=== PATIENT | male | born 1960 | race Caucasian/White ===

== ENCOUNTER 2017-01-07 08:30 | Inpatient (IN) | payer OTHER ==
[~2017-01-07] VITALS: Ht 177.8 cm; Wt 95.5 kg
[2017-01-07] MEDS ORDERED: OMEP20CA3 PO (08:48)
[2017-01-07] MEDS ORDERED: ATOR1TAB18 PO (08:48)
[2017-01-07] MEDS ORDERED: ETOD30CA PO (08:48)
[2017-01-07] MEDS: MULTIVITAMINS/MINERALS THERAP 1 TAB PO SCH ×2 (09:00→21:19)
[2017-01-07] MEDS ORDERED: MORPHINE 4 MG/ML 1ML SYRINGE IV ONE (09:00)
[2017-01-07] MEDS ORDERED: ONDANSETRON 4MG/2ML VIAL (J2405) IV ONE (09:00)
--- NOTE | 2017-01-07 09:22 | REP ---
PORTABLE CHEST, SINGLE VIEW: COMPARISON: 01/19/2015. There is no evidence of acute infiltrate. No pleural effusion is seen. The heart is normal in size. The mediastinal silhouette is unremarkable. The visualized osseous structures are intact. IMPRESSION: No acute pulmonary disease. Signed by Saji Navarrete MD 01/07/2017 12:42 P
[2017-01-07 09:39] LABS: BASO # 0.1 K/mm3 (0.0-0.2); BASO % 0.8 % (0.0-1.0); EOS # 0.1 K/mm3 (0.0-0.50); EOS % 1.2 % (0.0-3.0); LARGE UNSTAINED CELL # 0.2 K/mm3 (0.0-0.4); LARGE UNSTAINED CELL % 1.7 % (0.0-4.0); LYMPH # 1.7 K/mm3 (1.5-4.5); LYMPH % 17.9 % (24.0-44.0); MEAN CORPUSCULAR HEMOGLOBIN 31.2 pg (27.0-33.0); MEAN CORPUSCULAR HGB CONC 33.7 g/dl (32.0-36.5); MEAN CORPUSCULAR VOLUME 92.8 fl (80.0-96.0); MONO # 0.5 K/mm3 (0.0-0.8); MONO % 5.4 % (0.0-5.0); NEUTROPHILS # 6.7 K/mm3 (1.8-7.7); PLATELET COUNT, AUTOMATED 274 k/mm3 (150-450); RED CELL DISTRIBUTION WIDTH 12.8 % (11.5-14.5); WHITE BLOOD COUNT 9.2 K/mm3 (4.0-10.0)
[2017-01-07 09:52] LABS: ALBUMIN/GLOBULIN RATIO 1.03 (1.00-1.93); ALKALINE PHOSPHATASE 92 U/L (45-117); ALT/SGPT 59 U/L (12-78); ANION GAP 9 MEQ/L (8-16); AST/SGOT 16 U/L (15-37); BILIRUBIN,DIRECT 0.1 MG/DL (0.0-0.2); BILIRUBIN,TOTAL 0.7 MG/DL (0.2-1.0); BLOOD UREA NITROGEN 13 MG/DL (7-18); CARBON DIOXIDE LEVEL 26 MEQ/L (21-32); CHLORIDE LEVEL 102 MEQ/L (98-107); CREATININE FOR GFR 0.83 MG/DL (0.70-1.30); GLOMERULAR FILTRATION RATE > 60.0 (>56); GLUCOSE, FASTING 121 MG/DL (70-105); POTASSIUM SERUM 4.6 MEQ/L (3.5-5.1); SODIUM LEVEL 137 MEQ/L (136-145); TOTAL PROTEIN 7.9 GM/DL (6.4-8.2)
--- NOTE | 2017-01-07 09:55 | REP ---
CT Head without contrast HISTORY: Altered mental status COMPARISON: None There is no intraparenchymal hemorrhage, acute infarct, mass or midline shift. The ventricular system is normal in appearance. There is no extra cerebral collection. There is no fracture. The visualized sinuses are clear. IMPRESSION: There is no intracranial lesion. Signed by Miles Negrete MD 01/07/2017 09:46 A
[2017-01-07] MEDS: NS 1,000 ML IV SCH ×2 (10:31→19:39)
--- NOTE | 2017-01-07 13:56 | REP ---
MR angiography the brain without contrast: History: CVA versus TIA. Technique: 3-D [id number] MR angiography of the brain is acquired in the usual fashion and maximal intensity projection images were generated in rotational format about the vertical and horizontal axes. In addition, source axial T1-weighted images are viewed in cine mode. MR angiographic findings: The distal vertebral arteries are patent , right larger than left . Basilar artery is a little tortuous but widely patent. The posterior cerebral and superior cerebellar vessels are normal and symmetric. The distal internal carotid arteries are unremarkable. Anterior and middle cerebral arteries appear intact. There is no visible flores aneurysm or arteriovenous malformation. Impression: Unremarkable MR angiography the brain. Signed by Stone Ruff MD 01/07/2017 01:47 P
--- NOTE | 2017-01-07 14:07 | REP ---
MR BRAIN WITHOUT CONTRAST: HISTORY: TIAs. Scattered punctate areas of increased signal intensity on T2-weighted images are present in the periventricular and subcortical white matter. This represents small vessel ischemic disease. There is no intraparenchymal hemorrhage, infarct, mass, or midline shift. The sella turcica is partially empty. The ventricular system is normal in appearance. There is no extracerebral collection. Mucosal thickening is present in the mastoid air cells and right ethmoid sinus. IMPRESSION: Minimal small vessel ischemic disease. Signed by Miles Negrete MD 01/07/2017 02:18 P
[2017-01-07] MEDS ORDERED: LISI40TAB PO (16:02)
[2017-01-07] MEDS ORDERED: ONDANSETRON 4MG/2ML VIAL (J2405) IV PRN (16:30)
[2017-01-07] MEDS ORDERED: ACETAMINOPHEN TAB 650MG DOSE (2X325MG) PO PRN (16:30)
--- NOTE | 2017-01-07 17:13 | HPEPDOC ---
General Date of Admission Jan 07, 2017 at 16:29 Chief Complaint The patient is a 56-year-old male admitted with a reason for visit of TIA. Source: Patient Exam Limitations: No limitations History of Present Illness 56-year-old male with past medical history of hypertension, dyslipidemia, GERD, alcohol abuse, and tobacco abuse presented to the ER after he had an episode of headache associated with confusion and diaphoresis. The patient states that he was at work this morning around 10:30 AM, when he all of a sudden started to have left-sided headache with blurring of vision, and associated with confusion with diaphoresis. He states that his coworker subsequently called 911 for further evaluation and management. During this time, the patient denies any tongue biting, jerking activity, urinary/fecal incontinence, chest pain, palpitations, shortness of breath, abdominal pain, or any nausea/vomiting/ diarrhea. He denies any complaints of fevers, cough, or congestion leading up to this event. The patient also denies any focal neurological complaints of facial numbness/tingling, slurring of speech, weakness in any of his extremities , or any other focal neurological deficits. At this time, the patient states that he is feeling much better, and denies any acute complaints. In the ER, a CT scan of the head and MRI and MRA of the brain revealed no acute findings. The ER physician did get in contact with neurology who has requested the patient be admitted for further monitoring and workup. The patient will be admitted under the service of Dr. Lopez for further evaluation and management. Home Medications Scheduled Aspirin (Aspirin EC) 81 Mg Tabec 81 MG PO DAILY Atorvastatin Calcium (Atorvastatin Calcium) 80 Mg Tab 40 MG PO DAILY (Reported ) Lisinopril (Lisinopril) 40 Mg Tab 40 MG PO DAILY (Reported) Omeprazole (Omeprazole) 20 Mg Cap 20 MG PO DAILY (Reported) Allergies Coded Allergies: No Known Drug Allergy (Verified Allergy, Unknown, 01/07/17) Past Medical History Medical History As noted in HPI. Surgical History None Family History Mother has diabetes mellitus Social History * Smoker: other (has smoked 1-1/2 packs per day of tobacco for the last 30+ years) Alcohol: other (drinks 4-5 beers daily for the last 3 years) Drugs: marijuana (smokes marijuana joint daily for the past 5 years.) [place] , is able to complete ADLs independently. 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 Review of Symptoms Other systems 10 point review of systems negative unless otherwise specified in HPI. Physical Examination General Exam: Positive: Alert, Cooperative, No Acute Distress ENT Exam: Positive: Atraumatic, Mucous membr. moist/pink Neck Exam: Negative: JVD Chest Exam: Positive: Clear to auscultation, Normal air movement Heart Exam: Positive: Normal S1, Normal S2, Rate Normal, Regular Rhythm Telemetry: Positive: Sinus Abdomen Exam: Positive: Soft, Negative: Tenderness Extremity Exam: Positive: Normal pulses, Negative: Swelling, Tenderness Neuro Exam: Positive: Cranial Nerves 3-12 NL, Other (NIHSS 0), Sensation Intact , Strength at 5/5 X4 ext Vital Signs As noted in EMR Laboratory Data Labs 24H Laboratory Tests 2 01/07/17 09:07: Aspartate Amino Transf (AST/SGOT) 16, Alanine Aminotransferase (ALT/SGPT) 59, Alkaline Phosphatase 92, Total Bilirubin 0.7, Direct Bilirubin 0.1, Albumin 4.0 , Albumin/Globulin Ratio 1.03, Anion Gap 9, White Blood Count 9.2, Red Blood Count 4.94, Hemoglobin 15.4, Hematocrit 45.9, Mean Corpuscular Volume 92.8, Mean Corpuscular Hemoglobin 31.2, Mean Corpuscular Hemoglobin Concent 33.7, Red Cell Distribution Width 12.8, Platelet Count 274, Neutrophils (%) (Auto) 73.0H, Lymphocytes (%) (Auto) 17.9L, Monocytes (%) (Auto) 5.4H, Eosinophils (%) (Auto) 1.2, Basophils (%) (Auto) 0.8, Neutrophils # (Auto) 6.7, Lymphocytes # (Auto) 1.7, Monocytes # (Auto) 0.5, Eosinophils # (Auto) 0.1, Basophils # (Auto) 0.1, Calcium Level 9.0, Creatine Kinase MB 1.6, Creatine Kinase MB Relative Index 1.53, Glomerular Filtration Rate > 60.0, Lactic Acid Level 2.4*H, Large Unclassified Cells # 0.2, Large Unclassified Cells % 1.7, Thyroid Stimulating Hormone (TSH) 2.670, Total Creatine Kinase 104, Total Protein 7.9, Troponin I < 0.02 01/07/17 09:26: Bedside Glucose (Misc Panel) 110H 01/07/17 13:44: Lactic Acid Followup at 4 Hours 1.8 CBC/BMP Laboratory Tests 01/07/17 09:07 Red Blood Count 4.94, Mean Corpuscular Volume 92.8, Mean Corpuscular Hemoglobin 31.2, Mean Corpuscular Hemoglobin Concent 33.7, Red Cell Distribution Width 12.8 , Neutrophils (%) (Auto) 73.0 H, Lymphocytes (%) (Auto) 17.9 L, Monocytes (%) ( Auto) 5.4 H, Eosinophils (%) (Auto) 1.2, Basophils (%) (Auto) 0.8, Neutrophils # (Auto) 6.7, Lymphocytes # (Auto) 1.7, Monocytes # (Auto) 0.5, Eosinophils # ( Auto) 0.1, Basophils # (Auto) 0.1 Plan / VTE VTE Prophylaxis Ordered?: Yes Plan Plan Episode of headache, confusion, with blurred vision possibly secondary to TIA CT scan of the head, MRI and MRA of the brain with no acute findings Patient's symptoms have resolved, current NIHSS Score: 0 Neurology contacted in the ER, have recommended admission for further monitoring Neuro checks every 4 EKG noted to be in normal sinus rhythm Continue Lipitor 40 mg, aspirin 81 mg added 2-D echocardiogram, carotid ultrasound ordered Lipid panel, hemoglobin A1c ordered Neurology consulted for inpatient follow-up We will continue to monitor the patient's status Lactic acidosis likely secondary to above event, resolved Status post IV fluid hydration Hypertension, stable Continue lisinopril Dyslipidemia Continue Lipitor GERD Continue PPI Alcohol abuse Patient states that he drinks 4-5 beers daily Advised on drinking in moderation Serax every 6 hours Withdrawal precautions Tobacco abuse Counseled the patient on the need for cessation Marijuana use Patient states that he smokes 1 joint daily for the past 5 years Counseled on cessation DVT prophylaxis-Lovenox The patient will be admitted under the service of Dr. Lopez. ROSI CEDILLO MD Jan 07, 2017 17:13
--- NOTE | 2017-01-07 18:20 | REP ---
Clinical: Transient ischemic attack . Technique: Navarrete scale and color Doppler evaluation using linear high frequency transducer Findings: Two-dimensional navarrete scale and color images demonstrate minimal mixed plaque at the carotid bulbs with normal arterial lumen and laminar flow. No appreciable narrowing noted. Color Doppler interrogation demonstrates normal arterial wave patterns and velocities with no significant spectral broadening. Normal flow direction is appreciated in the bilateral vertebral arteries. RIGHT (cm/s) LEFT (cm/s) ICA peak systolic velocity 71.8 65.0 ICA diastolic velocity 27.9 24.9 ECA peak systolic velocity 138 103.5 CCA peak systolic velocity 137.2 126.3 ICA/CCA ratio 0.5 0.5 Impression: No hemodynamically significant areas of narrowing or stenosis appreciated. Based on set standards narrowing falls within the less than 50% range. Signed by Mikal Bingham MD 01/07/2017 05:29 P
[2017-01-07] MEDS: ENOXAPARIN 40 MG/0.4 ML SYRINGE (J1650) SC SCH (19:41)
[2017-01-07] MEDS: OXAZEPAM 15 MG CAP PO SCH (19:41)
[2017-01-07 21:05] VITALS: BP 137/77
[2017-01-07 21:11] VITALS: BP 137/77
[2017-01-07] MEDS: FOLIC ACID 1 MG TAB PO SCH (21:19)
[2017-01-07] MEDS: THIAMINE 100 MG TAB PO SCH (21:19)
[2017-01-07] MEDS: ASPIRIN 81 MG ENTERIC TAB PO SCH (21:19)
[2017-01-07 23:58] VITALS: BP 108/58
[2017-01-08] MEDS: OXAZEPAM 15 MG CAP PO SCH ×4 (00:22→18:11)
[2017-01-08] MEDS: NS 1,000 ML IV SCH ×2 (04:52→14:47)
[2017-01-08 04:56] VITALS: BP 132/87
[2017-01-08 05:24] LABS: MEAN CORPUSCULAR HEMOGLOBIN 31.7 pg (27.0-33.0); MEAN CORPUSCULAR HGB CONC 34.3 g/dl (32.0-36.5); MEAN CORPUSCULAR VOLUME 92.5 fl (80.0-96.0); RED CELL DISTRIBUTION WIDTH 12.7 % (11.5-14.5); WHITE BLOOD COUNT 8.9 K/mm3 (4.0-10.0)
[2017-01-08 05:27] LABS: ANION GAP 6 MEQ/L (8-16); BLOOD UREA NITROGEN 11 MG/DL (7-18); CARBON DIOXIDE LEVEL 28 MEQ/L (21-32); CHLORIDE LEVEL 108 MEQ/L (98-107); CHOLESTEROL LEVEL 160 MG/DL (<200); CREATININE FOR GFR 0.84 MG/DL (0.70-1.30); GLOMERULAR FILTRATION RATE > 60.0 (>56); GLUCOSE, FASTING 123 MG/DL (70-105); POTASSIUM SERUM 4.1 MEQ/L (3.5-5.1); SODIUM LEVEL 142 MEQ/L (136-145); TRIGLYCERIDES LEVEL 322 MG/DL (<150)
[2017-01-08 07:45] VITALS: BP 137/83
[2017-01-08] MEDS ORDERED: LISINOPRIL 40 MG TAB PO SCH (09:00)
[2017-01-08] MEDS ORDERED: OMEPRAZOLE 20 MG CAP PO SCH (09:00)
[2017-01-08] MEDS ORDERED: ATORVASTATIN 20 MG TAB PO SCH (09:00)
[2017-01-08] MEDS: ASPIRIN 81 MG ENTERIC TAB PO SCH (09:28)
[2017-01-08] MEDS: FOLIC ACID 1 MG TAB PO SCH (09:28)
[2017-01-08] MEDS: MULTIVITAMINS/MINERALS THERAP 1 TAB PO SCH (09:29)
[2017-01-08] MEDS: THIAMINE 100 MG TAB PO SCH (09:29)
[2017-01-08 12:00] VITALS: BP 109/70
[2017-01-08 16:00] VITALS: BP 113/53
[2017-01-08] MEDS ORDERED: ASPI81TAEC PO (17:03)
--- NOTE | 2017-01-08 18:06 | DSES ---
DATE OF ADMISSION: 01/07/2017 DATE OF DISCHARGE: 01/08/2017 DISCHARGE DIAGNOSIS: Possible transient ischemic attack (TIA). SECONDARY DIAGNOSES: 1. Near syncope. 2. Atypical migraine. 3. Tobacco use. 4. Alcohol abuse. 5. Dyslipidemia. 6. Hypertension. 7. Gastroesophageal reflux disease. 8. Marijuana use. HOSPITAL COURSE: The patient is a 56-year-old man who was at work when he became confused, felt unwell, felt lightheaded, he had left-sided headache associated with his symptoms which did not resolve for approximately half an hour. His coworkers called [id number] and he was brought to the emergency room where there was concern for a TIA. The patient had a fairly extensive workup including a CT scan of the head, chest xray, MRI/MRA of the brain, as well as duplex ultrasounds of his carotids which did not reveal any acute CVA or etiology for a possible TIA. The patient's symptoms spontaneously resolved and he returned to his complete baseline. The patient had a TSH within normal limits and a hemoglobin A1c within normal limits. He was admitted to telemetry and monitored. He did have an echocardiogram and EEG completed which he can followup outpatient with his primary care provider and in the neurology clinic. He was seen in consultation by Dr. Sheth of neurology as there was concern for a possible TIA. Subjectively, the patient reports he feels completely back to normal and would like to go home. He has no complaints at this time. He denies paresthesias, weakness, chest pain, shortness of breath, fevers, chills, nausea, vomiting, or diarrhea. OBJECTIVE: VITAL SIGNS: Temperature 98, pulse 65, respiratory rate 18, blood pressure 137/83, oxygen saturation 96% on room air. GENERAL: He is a very pleasant, obese, middle aged, man laying in bed at a 60 degree angle watching television. He is accompanied by his . The patient does not appear to be in any acute distress. HEENT: Cranial nerves II-XII are grossly intact. He has moist mucous membranes. No elevation in his central venous pressure (CVP). CARDIOVASCULAR EXAM: S1, S2, regular. RESPIRATORY EXAM: Clear. ABDOMINAL EXAM: Obese. Bowel sounds are present. The abdomen is soft. EXTREMITIES: No clubbing, cyanosis, or edema. NEUROLOGICAL EXAM: Nonfocal. LABORATORY STUDIES: WBC 8.9, hemoglobin 14.6, platelet count 262. Chemistry panel: Sodium 142, potassium 4.1, chloride 108, bicarbonate 28, BUN 11, creatinine 0.8. Triglyceride level was elevated at 322, LDL 66.6, HDL was low at 29. TSH within normal limits as was hemoglobin A1c. Ethyl alcohol level was undetectable. IMAGING: As outlined above. ASSESSMENT AND PLAN: This is a 56-year-old man with: 1. Possible transient ischemic attack (TIA). The patient is being discharged home on his home statin as well as he has been started on a baby aspirin. The goal is to optimize his blood pressure. He has been advised to avoid all tobacco products and keep his alcohol use moderate. He has been seen by neurology who will continue to follow him up on the outpatient setting. He is to followup with his primary care provider (PCP) in 7 days and followup with the results of his echocardiogram and EEG. 2. Hypertension. Continue lisinopril. 3. Dyslipidemia. Continue Lipitor. 4. Gastroesophageal reflux disease. Continue with proton pump inhibitor (PPI). 5. Alcohol abuse. Moderation has been advised with no more than two drinks per day. Have recommended that he take folate, thiamine, and multivitamin. 6. Tobacco abuse. Cessation counseling offered and advised. 7. Marijuana use. Cessation counseling advised. 8. Deep venous thrombosis (DVT) prophylaxis. The patient has been on Lovenox. DISPOSITION: The patient is being discharged home to the care of his family. He is to followup with his primary care provider within 7 days and with neurology within 2 weeks. His activity is as prior to admission. His diet is as prior to admission. He is to avoid all tobacco products and limit alcohol use. MEDICATIONS: At the time of discharge: - aspirin 81 mg daily - atorvastatin 40 mg daily - lisinopril 40 mg daily - omeprazole 20 mg daily Greater than 30 minutes spent organizing disposition.
[2017-01-08] MEDS: ENOXAPARIN 40 MG/0.4 ML SYRINGE (J1650) SC SCH (18:13)
--- NOTE | 2017-01-08 20:39 | ECGEPIP ---
Stationary ECG Study [facility] - ED Test Date: 2017-01-07 Pat Name: SERGEY RIVERA Department: Room: - Gender: M [employer]ug Captain: tavares : 1960 Requested By: Liam Dominique Order Number: [id number] Reading MD: Gely Martinez Measurements Intervals [place] Rate: 61 P: 19 AK: 160 QRS: -5 QRSD: 93 T: 0 QT: 423 QTc: 427 Interpretive Statements SINUS RHYTHM NSTTW ABNORMALITY NO PRIOR FOR COMPARISON Electronically Signed On 01-08-2017 20:38:36 EDT by Gely Martinez
--- NOTE | 2017-01-09 09:54 | ECHO ---
DATE OF STUDY: 01/08/2017 REFERRING PHYSICIAN: Dr. Phoenix INDICATION: TIA. The patient measures 178 cm and weighs 95 kg. DIMENSIONS: IVS 1.2 LV 4.7 LVPW 1.2 LA 4.0 Aorta 3.4 FINDINGS: This study is of acceptable technical quality. Left ventricle is normal size and contractility with estimated EF around 60-65%. Mild LVH is noted. Right ventricle is normal size and systolic function. Left atrium is normal size (calculated left atrial volume index is 19 ml per meter square). Aortic valve is mildly sclerotic. Mitral tricuspid and pulmonic valves appear normal. No pericardial effusion is noted. Inferior vena cava is dilated but collapses with respiration indicative of likely mildly elevated central venous pressure. Aortic root is normal. Aortic arch and abdominal aorta were not visualized. Doppler interrogation of aortic valve reveals no insufficiency and trivial stenosis with mean gradient 6 mmHg. There is trace mitral insufficiency and trace tricuspid insufficiency. Calculated pulmonary artery pressure is in 30s corresponding to mild pulmonary hypertension. Pulmonic valve is functionally competent. Mitral inflow pattern and tissue Doppler imaging of mitral annulus reveal grade 2 diastolic dysfunction (E prime velocities are 6.5 cm/sec in septal and 11.3 cm/sec in lateral mitral annulus). CONCLUSIONS: 1. Study is of acceptable technical quality. 2. Normal LV size with mild LVH and preserved LV systolic function. 3. No hemodynamically significant valvular disease. 4. Likely mildly elevated central venous pressure and mild pulmonary hypertension. COMMENT: SBE prophylaxis is not recommended. Overall study most consistent with mild hypertensive heart disease. MTDD
--- NOTE | 2017-01-09 16:36 | EEG ---
DATE OF PROCEDURE: 01/08/2017 REFERRING PHYSICIAN: Dr. Clyde Lopez DIAGNOSIS: Altered mental status. EEG NUMBER: 17 [id number] HISTORY: The patient is a 56-year-old man who was admitted at [facility] due to episode of headache, confusion and sweating. He also had a blurred vision. This EEG was done to rule out epileptic potential. He is currently taking lisinopril, oxazepam, aspirin, folic acid, thiamine, etc. TECHNICAL DESCRIPTION: This digital EEG was recorded by 21 scalp, ear and two EKG electrodes and was reviewed in bipolar and referential montages following reformatting in 10-20 international electrode placement system. INTERPRETATION: The patient was noted to be in awake and drowsy states during this EEG. Resting awake background consisted of 15 Hz beta activity measuring 10-20 microvolts in amplitude which was symmetric and reactive to eye opening. Attenuation of posterior dominant was seen during transition into drowsiness. Stage I and II sleep were reviewed and were symmetric bilaterally. Hyperventilation and photic stimulation remained unremarkable. EKG revealed normal sinus rhythm. No focal, lateralizing or epileptiform abnormalities were seen. No clinical or electrographic seizures were recorded. CONCLUSION: This EEG in awake, drowsy states, stage I and II sleep is within normal limits. Excessive beta activity is due to medication effect.
--- NOTE | 2017-01-12 11:50 | CR ---
DATE OF CONSULTATION: 01/07/2017 REFERRING PROVIDER: Dr. Clyde Lopez REASON FOR CONSULTATION: History of transient ischemic attack (TIA). HISTORY OF PRESENTING ILLNESS: The patient is a 56-year-old male with a past medical history significant for hypertension, dyslipidemia, gastroesophageal reflux disease, alcohol abuse, tobacco abuse, presenting with an acute episode of headache associated with confusion, difficulty getting speech out. The patient states that his symptoms resolved by the time he arrived to the hospital. The patient denied having any chest pain, shortness of breath. He does smoke every day and does drink alcohol 4-5 beers a day. The patient did have a CAT scan of the head, as well as MR angiogram of the brain and MRI of the brain, both of which were negative. There is no significant stenosis on his carotid studies. The patient was given 81 mg aspirin and told to start Serax, thiamine, folic acid, and multivitamin. He was counseled to quit tobacco, as he smokes 1-1/2 packs of tobacco a day. He was counseled to reduce his alcohol intake, as he drinks 4-5 beers a day. He uses marijuana daily. The patient was counseled to cut back on marijuana, as well. The patient at the present time denies any difficulty with speech, numbness, tingling, weakness, dysarthria, aphasia, vertigo, dizziness at this time. REVIEW OF SYSTEMS: 14-point review of systems negative except as per history of present illness (HPI). PAST MEDICAL HISTORY: 1. Hypertension. 2. Hyperlipidemia. 3. Gastroesophageal reflux disease. 4. Alcohol abuse. 5. Tobacco abuse. 6. Marijuana abuse. ALLERGIES: None. HOME MEDICATIONS: - lisinopril 40 mg by mouth every day - omeprazole 20 mg by mouth every day - atorvastatin 40 mg by mouth every day SOCIAL HISTORY: The patient smokes 1-1/2 packs of tobacco per day for the last 30 years. Drinks 4-5 beers daily for the last 3 years. Uses marijuana daily for the past 5 years. FAMILY HISTORY: Noncontributory. PHYSICAL EXAMINATION: Blood pressure 113/53, pulse rate 60, respiratory rate is 18, temperature 97.9 degrees Fahrenheit, oxygenation 93% on room air. The patient is alert, oriented to person, place, and time. Speech, language, comprehension, and repetition are intact. Pupils are 3 mm, round and reactive to light. Deep tendon reflexes are 2+ throughout. Romberg testing is negative. There is no pronator drift. Strength is 5/5, including bilateral biceps, deltoids, triceps, handgrip, iliopsoas, quadriceps, anterior tibialis. Sensory is intact to light touch in all four extremities. Coordination normal. [id number] and [id number] without any signs of ataxia or dysmetria. Gait is normal. ASSESSMENT: Possible transient ischemic attack with episode of confusion, headache, blurred vision, diaphoresis. PLAN: 1. Continue aspirin 81 mg by mouth every day, atorvastatin 40 mg by mouth every day. 2. Continue telemetry monitoring. The patient is cleared to be discharged home, as he may have had a TIA, and so far, stroke workup is negative. Recommend cessation of tobacco, marijuana, and cutting down significantly on alcohol. The patient can followup in the [facility] Neurology office upon discharge. Physical therapy (PT) and occupational therapy (OT) recommended. Echocardiogram can be set up as an outpatient if needed. Electroencephalogram (EEG) can also be set up as an outpatient if needed.
== END 2017-01-08 18:11 | disposition home or self-care (01) | DRG 47 ==
LOC: EDBD 08:30 → M ED 09:17 → M ED INP 16:29 → M PCU 21:02
PROVIDERS: ADMIT Internal Medicine; ATTEND Internal Medicine
DX: G45.9 Transient cerebral ischemic attack, unspecified (principal); E87.2 Acidosis; R55 Syncope and collapse; I10 Essential (primary) hypertension; E78.5 Hyperlipidemia, unspecified; K21.9 Gastro-esophageal reflux disease without esophagitis; G43.909 Migraine, unspecified, not intractable, without status migrainosus; E66.9 Obesity, unspecified; F12.90 Cannabis use, unspecified, uncomplicated; F17.210 Nicotine dependence, cigarettes, uncomplicated; F10.10 Alcohol abuse, uncomplicated; Z79.82 Long term (current) use of aspirin; Z79.899 Other long term (current) drug therapy

== ENCOUNTER → 2020-03-23 | Outpatient (REF) | payer OTHER ==
[~2020-03-23] MED LIST: ASPI81TAEC PO; ATOR80TA59 PO; ETOD30CA PO; LISI40TA PO; OMEP1CAP73 PO
== END ==
LOC: M SFHCLERA 09:47
PROVIDERS: ATTEND Physician Assistant
DX: L02.416 Cutaneous abscess of left lower limb (principal)

== ENCOUNTER → 2020-05-29 | Outpatient (CLI) | payer OTHER ==
--- NOTE | 2020-08-21 08:55 | SLEEPCENT ---
DATE: 05/29/2020 ORDERED BY: Renetta Virgen at the 's [facility]. Diagnostic nocturnal polysomnography was performed for evaluation of sleep physiology. There was 7 hours and 35 minutes of data reviewed. There was 383.5 minutes of sleep identified. Sleep latency was mildly prolonged at 23 minutes. REM latency was normal at 69 minutes. Sleep architecture showed fragmentation. There were four REM cycles noted. Overall sleep efficiency is 85.1%. The electrocardiogram shows a sinus rhythm with an average heart rate of 56 beats per minute. EEG showed normal waveforms for wake and sleep. There were 76 respiratory events identified of 10 seconds in duration or greater for an apnea-hypopnea index off 11.9. The events were primarily obstructive, not exclusive to sleep stage nor body posture. Arousals from respiratory events occurred 5.6 times per hour, and oxygen desaturations were seen briefly below 90%. Minimal limb activity and arousals from limb events were few. IMPRESSION: Obstructive sleep apnea syndrome (G47.33). Apnea-hypopnea index 11.9. RECOMMENDATION: The patient should be encouraged to return to the sleep disorder center for pressure therapy. In the interim, alcohol and sedative avoidance should be practiced and caution exercised during the operation of motor vehicles. MTDD
== END ==
LOC: M SLEEP 20:00
PROVIDERS: ATTEND Internal Medicine
DX: G47.33 Obstructive sleep apnea (adult) (pediatric) (principal)

== ENCOUNTER → 2022-01-10 | Outpatient (CLI) | payer OTHER ==
[~2022-01-10] MED LIST changes: +ALPR1TAB3 PO; +ASPI-569 PO; -ASPI81TAEC PO; +EZET10TA21 PO; -LISI40TA PO; +LISI40TA4 PO; +XANA0.5T PO
== END ==
LOC: M LABSMTC 09:00
PROVIDERS: ATTEND Anesthesiology
DX: Z01.818 Encounter for other preprocedural examination (principal); Z11.52 Encounter for screening for COVID-19

== ENCOUNTER 2022-01-15 10:57 | Day surgery (SDC) | payer OTHER ==
[~2022-01-15] VITALS: Ht 177.8 cm; Wt 92.0 kg
[~2022-01-15 10:57] MED LIST changes: +NS 1,000 ML IV ONE
[2022-01-15] MEDS ORDERED: fentaNYL 100 MCG/2 ML INJECTION As Ordered ONE (12:36)
[2022-01-15] MEDS ORDERED: LIDOCAINE 2% 100MG/5ML SDV (FOR ANES.) As Ordered ONE (12:37)
[2022-01-15] MEDS ORDERED: propofoL 200 MG/20 ML VIAL As Ordered ONE (12:37)
[2022-01-15 14:05] VITALS: BP 134/76
== END 2022-01-15 14:06 | disposition home or self-care (01) ==
LOC: M OPP 10:57
PROVIDERS: ATTEND Internal Medicine Gastroenterology
DX: Z12.11 Encounter for screening for malignant neoplasm of colon (principal); K57.30 Diverticulosis of large intestine without perforation or abscess without bleeding; K64.0 First degree hemorrhoids; K22.89 Other specified disease of esophagus; K31.89 Other diseases of stomach and duodenum; R12 Heartburn; Z79.82 Long term (current) use of aspirin; Z79.891 Long term (current) use of opiate analgesic; Z79.899 Other long term (current) drug therapy; Z88.8 Allergy status to other drugs, medicaments and biological substances; F17.210 Nicotine dependence, cigarettes, uncomplicated
CPT/HCPCS: 43239; 45378; 88305; J3010

== ENCOUNTER → 2023-02-24 | Outpatient (CLI) | payer OTHER ==
[~2023-02-24] MED LIST changes: -NS 1,000 ML IV ONE
== END ==
LOC: M RAD 14:15
PROVIDERS: ATTEND Internal Medicine
DX: I65.23 Occlusion and stenosis of bilateral carotid arteries (principal)

== ENCOUNTER 2023-07-05 18:10 | Emergency (ER) | payer OTHER ==
[~2023-07-05] VITALS: Ht 177.8 cm; Wt 87.4 kg
[2023-07-05 18:11] VITALS: BP 156/82; TEMP 98.4; O2SAT 95
[2023-07-05] MEDS ORDERED: OXYC-1 PO (18:15)
[2023-07-05] MEDS ORDERED: KETOROLAC 30 MG/ML 1ML VIAL IM ONE (19:50)
[2023-07-05] MEDS ORDERED: KETOROLAC 30 MG/ML 1ML VIAL IV ONE (19:55)
[2023-07-05] MEDS ORDERED: ISOVUE-370 76% 100ML VIAL As Ordered ONE (20:49)
== END 2023-07-05 21:08 | disposition left against medical advice (07) ==
LOC: M ED 18:10
DX: R07.82 Intercostal pain (principal); W55.12XA Struck by horse, initial encounter; I10 Essential (primary) hypertension; E11.9 Type 2 diabetes mellitus without complications; F17.200 Nicotine dependence, unspecified, uncomplicated; F10.10 Alcohol abuse, uncomplicated; Z79.02 Long term (current) use of antithrombotics/antiplatelets; Z79.811 Long term (current) use of aromatase inhibitors; Z79.899 Other long term (current) drug therapy; Z53.9 Procedure and treatment not carried out, unspecified reason; Y92.410 Unspecified street and highway as the place of occurrence of the external cause
CPT/HCPCS: 71101; 80047; 99283; J1885